=== PATIENT | female | born 1990 | race American Indian/Alaskan Native ===

== ENCOUNTER 2017-05-03 09:21 | Inpatient (IN) | payer OTHER ==
[2017-05-03 10:43] LABS: Mean Corpuscular HGB Conc 29 % (30-34); Platelet Count 305 K/mm3 (140-440); Red Blood Count 4.35 M/mm3 (3.65-5.03)
[2017-05-03 10:44] LABS: Hematocrit 25.1 % (30.3-42.9); Hemoglobin 7.2 gm/dl (10.1-14.3); Mean Corpuscular Hemoglobin 17 pg (28-32); Mean Corpuscular Volume 58 fl (79-97); Red Cell Distribution Width 21.8 % (13.2-15.2)
[2017-05-03 10:59] LABS: BUN/Creatinine Ratio 17; Blood Urea Nitrogen 10 mg/dL (7-17); Calcium 8.3 mg/dL (8.4-10.2); Hemolysis Index 3
[2017-05-03] MEDS ORDERED: TYLENOL ONE ×2 (12:28→17:51)
[2017-05-03] MEDS ORDERED: TYLENOL PO ONE (17:55)
[2017-05-03] MEDS ORDERED: NACL 0.9% 500 ML 500 ML IV ONE (22:18)
[2017-05-03] MEDS ORDERED: NACL 0.9% 1000 ML 1,000 ML IV ONE (22:20)
[2017-05-03] MEDS ORDERED: TORADOL IV ONE (22:20)
--- NOTE | 2017-05-03 22:26 | Emergency Department Report ---
ED Syncope HPI - General Chief Complaint: Weakness Stated Complaint: BLOOD TRANSFUSION Time Seen by Provider: 05/03/17 22:00 Source: patient Exam Limitations: no limitations - History of Present Illness Initial Comments: 27-year-old female with a past medical history of anemia with previous blood transfusion age 14 presents to the hospital complaining of syncope 2 over the past 3 weeks. Both episodes preceded by lightheadedness and generalized warmth sensation foor the past 3 weeks. She has to have a frequent vomiting with decreased by mouth tolerance that has started to taper off over the past 4 days. Patient only had diarrhea for 2 days during this illness. Patient had blood in her stool 2 which they resolved. No course of melena or hematemesis. Patient is currently on her menstrual cycle reports that it is typically heavy and she uses 6 overnight pads during the daylight hours today an additional pads at night. Patient has been back and forth to [facility] over the past week for her symptoms and today had blood work showing a hemoglobin of 6. Patient does presents with [facility] paperwork with a primary billing diagnosis of "idiopathic hemolytic anemia, chronic". Pt does not take Iron pills.. Dyspnea on exertion reported without chest pain, calf tenderness/edema, bcp use, or recent travel history. - Related Data Allergies/Adverse Reactions: Allergies No Known Allergies Allergy (Unverified 05/03/17 10:17) ED Review of Systems ROS: Stated complaint: BLOOD TRANSFUSION Other details as noted in HPI Comment: All other systems reviewed and negative Other: Constitutional: No fevers chills Eyes: No eye pain visual changes ENT: No ear pain or throat pain Neck: Denies pain Respiratory: Denies cough wheezing Cardiovascular: Denies chest pain, palpitations, syncope GI: Menstrual cramps : Denies dysuria Musculoskeletal: Denies back pain, joint swelling Skin: Denies rash, lesions, erythema Neurologic: Denies headache, numbness, weakness Psychiatric: Denies suicidal ideation, hallucinations ED Past Medical Hx - Past Medical History Previous Medical History?: No Additional medical history: anemia - Surgical History Past Surgical History?: No - Social History Smoking Status: Never Smoker Substance Use Type: Alcohol ED Physical Exam - General Limitations: No Limitations - Other Other exam information: General: No limitations, patient is alert in no acute distress Head exam: Atraumatic, normocephalic Eyes exam: Normal appearance, pale conjunctivae ENT: Moist mucous membrane, pale tongue Neck exam: Normal inspection, full range of motion, no meningismus nontender Respiratory exam: Clear to auscultation bilateral, no wheezes, rales, crackles Cardiovascular: Normal rate and rhythm, normal heart sounds Abdomen: Soft, nondistended, and nontender, with normal bowel sounds, no rebound, or guarding Extremity: Full range of motion normal inspection no deformity Back: Normal Inspection, full range of motion, no tenderness Neurologic: Alert, oriented x3, cranial nerves intact, no motor or sensory deficit Psychiatric: normal affect, normal mood Skin: Warm, dry, intact ED Course Vital Signs 05/03/17 05/03/17 05/03/17 10:11 16:21 18:25 Temperature 98 F 98.5 F Pulse Rate 68 69 Respiratory 18 18 18 Rate Blood Pressure 125/80 Blood Pressure 133/69 [Left] O2 Sat by Pulse 100 100 Oximetry 05/03/17 05/03/17 05/03/17 22:19 22:30 23:08 Temperature Pulse Rate 59 L 81 Respiratory 11 L 13 Rate Blood Pressure 136/95 136/95 Blood Pressure [Left] O2 Sat by Pulse 100 100 100 Oximetry 05/03/17 05/03/17 05/03/17 23:12 23:16 23:30 Temperature Pulse Rate 75 87 Respiratory 16 15 11 L Rate Blood Pressure 121/76 136/95 Blood Pressure [Left] O2 Sat by Pulse 100 100 Oximetry 05/03/17 05/04/17 23:45 00:00 Temperature Pulse Rate 75 67 Respiratory 13 20 Rate Blood Pressure 136/95 133/86 Blood Pressure [Left] O2 Sat by Pulse 100 100 Oximetry ED Medical Decision Making - Lab Data Result diagrams: 05/03/17 10:25 05/03/17 10:25 Lab Results 05/03/17 05/03/17 05/03/17 Range/Units 10:25 10:25 10:25 WBC 3.6 L (4.5-11.0) K/mm3 RBC 4.35 (3.65-5.03) M/mm3 Hgb 7.2 L (10.1-14.3) gm/dl Hct 25.1 L (30.3-42.9) % MCV 58 L (79-97) fl MCH 17 L (28-32) pg MCHC 29 L (30-34) % RDW 21.8 H (13.2-15.2) % Plt Count 305 (140-440) K/mm3 Percent Retic (0.78-2.58) % Sodium 143 (137-145) mmol/L Potassium 4.0 (3.6-5.0) mmol/L Chloride 105.6 (98-107) mmol/L Carbon Dioxide 24 (22-30) mmol/L Anion Gap 17 mmol/L BUN 10 (7-17) mg/dL Creatinine 0.6 L (0.7-1.2) mg/dL Estimated GFR > 60 ml/min BUN/Creatinine Ratio 17 % Glucose 87 (65-100) mg/dL Calcium 8.3 L (8.4-10.2) mg/dL Iron (37-170) ug/dL TIBC (250-450) mcg/dL % Saturation % Transferrin (192-382) mg/dl Total Bilirubin (0.1-1.2) mg/dL Direct Bilirubin (0-0.2) mg/dL Indirect Bilirubin mg/dL AST (5-40) units/L ALT (7-56) units/L Alkaline Phosphatase (35-129) units/L Lactate Dehydrogenase (91-180) units/L Total Protein (6.3-8.2) g/dL Albumin (3.9-5) g/dL Albumin/Globulin Ratio % HCG, Quant < 2 (0-4) mIU/mL Blood Type Antibody Screen Crossmatch 05/03/17 05/03/17 05/03/17 Range/Units 11:30 22:21 23:04 WBC (4.5-11.0) K/mm3 RBC (3.65-5.03) M/mm3 Hgb (10.1-14.3) gm/dl Hct (30.3-42.9) % MCV (79-97) fl MCH (28-32) pg MCHC (30-34) % RDW (13.2-15.2) % Plt Count (140-440) K/mm3 Percent Retic 1.01 (0.78-2.58) % Sodium (137-145) mmol/L Potassium (3.6-5.0) mmol/L Chloride (98-107) mmol/L Carbon Dioxide (22-30) mmol/L Anion Gap mmol/L BUN (7-17) mg/dL Creatinine (0.7-1.2) mg/dL Estimated GFR ml/min BUN/Creatinine Ratio % Glucose (65-100) mg/dL Calcium (8.4-10.2) mg/dL Iron 17 L (37-170) ug/dL TIBC 347 (250-450) mcg/dL % Saturation 4.90 % Transferrin 310 (192-382) mg/dl Total Bilirubin (0.1-1.2) mg/dL Direct Bilirubin (0-0.2) mg/dL Indirect Bilirubin mg/dL AST (5-40) units/L ALT (7-56) units/L Alkaline Phosphatase (35-129) units/L Lactate Dehydrogenase (91-180) units/L Total Protein (6.3-8.2) g/dL Albumin (3.9-5) g/dL Albumin/Globulin Ratio % HCG, Quant (0-4) mIU/mL Blood Type O POSITIVE Antibody Screen Negative Crossmatch See Detail 05/03/17 05/03/17 Range/Units 23:04 23:04 WBC (4.5-11.0) K/mm3 RBC (3.65-5.03) M/mm3 Hgb (10.1-14.3) gm/dl Hct (30.3-42.9) % MCV (79-97) fl MCH (28-32) pg MCHC (30-34) % RDW (13.2-15.2) % Plt Count (140-440) K/mm3 Percent Retic (0.78-2.58) % Sodium (137-145) mmol/L Potassium (3.6-5.0) mmol/L Chloride (98-107) mmol/L Carbon Dioxide (22-30) mmol/L Anion Gap mmol/L BUN (7-17) mg/dL Creatinine (0.7-1.2) mg/dL Estimated GFR ml/min BUN/Creatinine Ratio % Glucose (65-100) mg/dL Calcium (8.4-10.2) mg/dL Iron (37-170) ug/dL TIBC (250-450) mcg/dL % Saturation % Transferrin (192-382) mg/dl Total Bilirubin 0.20 (0.1-1.2) mg/dL Direct Bilirubin 0.2 (0-0.2) mg/dL Indirect Bilirubin 0.0 mg/dL AST 15 (5-40) units/L ALT 10 (7-56) units/L Alkaline Phosphatase 76 (35-129) units/L Lactate Dehydrogenase 163 (91-180) units/L Total Protein 7.5 (6.3-8.2) g/dL Albumin 4.4 (3.9-5) g/dL Albumin/Globulin Ratio 1.4 % HCG, Quant (0-4) mIU/mL Blood Type Antibody Screen Crossmatch - EKG Data -: EKG Interpreted by Me EKG shows normal: sinus rhythm, axis (21), QRS complexes (79), ST-T waves (no stemi/t wave inv) Rate: normal (64) - EKG Data When compared to previous EKG there are: previous EKG unavailable - Medical Decision Making Syncope Likely secondary to symptomatic anemia Volume depletion secondary to vomiting also contributing factor Anemia microcytic suggesting iron deficiency Active vaginal bleeding reported No current melena, hematochezia, or hematemesis reported [facility] has a diagnosis of hemolytic anemia however I suspect this is not the case. To confirm haptoglobin, ret count, LDH, LFTs, and iron studies added to blood work and pending at disposition 2 Units PRBC Heavy vaginal bleedings last menstrual cycle Likely contributing to anemia test negative Ultrasound pelvic/transvaginal pending at disposition tylenol and toradol given for menstrual cramps Hospitalist informed of admission. - Differential Diagnosis anemia, dehydration, Critical Care Time: No Critical care attestation.: If time is entered above; I have spent that time in minutes in the direct care of this critically ill patient, excluding procedure time. ED Disposition Clinical Impression: Syncope, Signs and symptoms of anemia, Menorrhagia, Vomiting Disposition: OP ADMIT IP TO THIS HOSP Is pt being admited?: Yes Condition: Stable Time of Disposition: 23:02 (jose/hosp)
[2017-05-03 23:37] LABS: Albumin 4.4 g/dL (3.9-5)
--- NOTE | 2017-05-03 23:48 | Ultrasound Report ---
FINAL REPORT EXAM: US TRANSVAGINAL HISTORY: heavy vag bleeding, anemia TECHNIQUE: Ultrasound pelvis transvaginal with pulsed and color Doppler evaluation is PRIORS: None. FINDINGS: The uterus is 7.5 x 3.6 x 4.1 centimeters. At the anterior aspect of the uterus there is a sub serosal mixed echogenicity focus measuring 2.2 centimeters consistent with a fibroid Endometrial stripe is 1.1 centimeters. No free-fluid identified The right ovary is 3.7 x 2.1 x 3.4 centimeters Left ovary is 3.8 x 0.7 x 2.5 centimeters Small follicular cysts are noted. No abnormal mass identified IMPRESSION: 2.2 centimeter uterine fibroid
--- NOTE | 2017-05-03 23:49 | Ultrasound Report ---
FINAL REPORT EXAM: US PELVIC COMPLETE HISTORY: heavy vag bleeding, anemia TECHNIQUE: Ultrasound pelvis transabdominal PRIORS: None. FINDINGS: The uterus is 7.5 x 3.6 x 4.1 centimeters. At the anterior aspect of the uterus there is a sub serosal mixed echogenicity focus measuring 2.2 centimeters consistent with a fibroid Endometrial stripe is 1.1 centimeters. No free-fluid identified The right ovary is 3.7 x 2.1 x 3.4 centimeters Left ovary is 3.8 x 0.7 x 2.5 centimeters Small follicular cysts are noted. No abnormal mass identified IMPRESSION: 2.2 centimeter uterine fibroid
--- NOTE | 2017-05-03 23:51 | History and Physical Report ---
History of Present Illness Date of admission: 05/03/17 23:03 Chief complaint: Was sent from primary care physician for blood transfusion History of present illness: 27-year-old -Iranian female with past medical history significant for anemia sent from her primary care physician Dr. Wilkerson for blood transfusion. Yesterday in her primary care physician office her hemoglobin was 6. She was sent to emergency department but she didn't come to the hospital rather she went home and come back today. Patient said she is feeling weak, and dizzy but denied chest pain, bilateral leg swelling, cough. Patient say her period is very heavy. Patient states she has history of blood transfusion when she was 14. Patient denied nausea, vomiting, hematemesis, or melena. REVIEW OF SYSTEMS: GENERAL: no weight change, +fatigue, no fever HEAD: no head ache EYES: no blurry vision, no acute visual loss EARS: no hearing loss, no discharge, no earache NOSE: no stuffiness, no sneezing, no discharge MOUTH, THROAT AND NECK: no bleeding gums, no sore throat, no swollen neck CARDIAC: no palpitations, + dyspnea on exertion, no orthopnea, no PND, no edema , no chest pain RESPIRATORY: no shortness of breath, no wheeze, no cough, no sputum, no hemoptysis, no asthma GI: no decreased appetite, no nausea, no vomiting, no dysphagia, no diarrhea, no constipation, no abdominal pain URINARY: no change in frequency, no urgency, no polyuria, no hematuria, no incontinence MUSCULOSKELETAL: no muscle weakness, no pain, no joint stiffness NEUROLOGIC: no loss of sensation/numbness, no tingling, no tremors, no weakness/ paralysis HEMATOLOGIC: no anemia, no easy bruising SKIN: no rashes ENDOCRINE: no heat/cold intolerance, no polyuria, no polydipsia, no thyroid problems, no diabetes PSYCHIATRIC: no anxiety, no depression, no suicidal ideations Past History Past Medical History: anemia Past Surgical History: No surgical history Social history: full code. denies: smoking, alcohol abuse, prescription drug abuse, IV drug use Family history: hypertension (motherMOTHER) Medications and Allergies Allergies Allergy/AdvReac Type Severity Reaction Status Date / Time No Known Allergies Allergy Unverified 05/03/17 10:17 Exam - Physical Exam Narrative exam: Not in cardiopulmonary distress. The patient is obese. Vital signs as documented. Head exam is unremarkable. No scleral icterus . Pale conjunctiva. Neck is without jugular venous distension, thyromegaly, or carotid bruits. Lungs are clear to auscultation. Cardiac exam reveals regular rate and Rhythm. First and second heart sounds normal. No murmurs, rubs or gallops. Abdominal exam reveals normal bowel sounds, no masses, no organomegaly and no aortic enlargement. Extremities are nonedematous and both femoral and pedal pulses are normal. TURNTABLE OPERATOR: Alert and oriented 3. No focal weakness. - Constitutional Vitals: Temp Pulse Resp BP Pulse Ox 98.5 F 69 16 133/69 100 05/03/17 16:21 05/03/17 16:21 05/03/17 23:12 05/03/17 16:21 05/03/17 16:21 Results - Labs CBC & Chem 7: 05/03/17 10:25 05/03/17 10:25 Labs: Laboratory Last Values WBC 3.6 K/mm3 (4.5-11.0) L 05/03/17 10:25 RBC 4.35 M/mm3 (3.65-5.03) 05/03/17 10:25 Hgb 7.2 gm/dl (10.1-14.3) L 05/03/17 10:25 Hct 25.1 % (30.3-42.9) L 05/03/17 10:25 MCV 58 fl (79-97) L 05/03/17 10:25 MCH 17 pg (28-32) L 05/03/17 10:25 MCHC 29 % (30-34) L 05/03/17 10:25 RDW 21.8 % (13.2-15.2) H 05/03/17 10:25 Plt Count 305 K/mm3 (140-440) 05/03/17 10:25 Percent Retic 1.01 % (0.78-2.58) 05/03/17 23:04 Sodium 143 mmol/L (137-145) 05/03/17 10:25 Potassium 4.0 mmol/L (3.6-5.0) 05/03/17 10:25 Chloride 105.6 mmol/L (98-107) 05/03/17 10:25 Carbon Dioxide 24 mmol/L (22-30) 05/03/17 10:25 Anion Gap 17 mmol/L 05/03/17 10:25 BUN 10 mg/dL (7-17) 05/03/17 10:25 Creatinine 0.6 mg/dL (0.7-1.2) L 05/03/17 10:25 Estimated GFR > 60 ml/min 05/03/17 10:25 BUN/Creatinine Ratio 17 % 05/03/17 10:25 Glucose 87 mg/dL (65-100) 05/03/17 10:25 Calcium 8.3 mg/dL (8.4-10.2) L 05/03/17 10:25 Total Bilirubin 0.20 mg/dL (0.1-1.2) 05/03/17 23:04 AST 15 units/L (5-40) 05/03/17 23:04 ALT 10 units/L (7-56) 05/03/17 23:04 Alkaline Phosphatase 76 units/L (35-129) 05/03/17 23:04 Lactate Dehydrogenase 163 units/L (91-180) 05/03/17 23:04 Total Protein 7.5 g/dL (6.3-8.2) 05/03/17 23:04 Albumin 4.4 g/dL (3.9-5) 05/03/17 23:04 Albumin/Globulin Ratio 1.4 % 05/03/17 23:04 HCG, Quant < 2 mIU/mL (0-4) 05/03/17 10:25 Blood Type O POSITIVE 05/03/17 11:30 Antibody Screen Negative 05/03/17 11:30 Crossmatch See Detail 05/03/17 11:30 - Imaging and Cardiology Imaging and Cardiology: Pelvic/vagina ultrasound 2.2 uterine fibroid Assessment and Plan Assessment and plan: Symptomatic anemia Menorrhagia Uterine fibroid - Anemia workup - We'll transfuse him 1 unit of blood - We will check posttransfusion H&H - My FIELD EVIDENCE TECHNICIAN consulted DVT prophylaxis - SCDs because of anemia and menorrhagia Disposition - Admit to medical floor Advance Directives: Yes VTE prophylaxis?: Mechanical Contraindication Mechanical VTE Prophylaxis: Contraindicated Reason for no VTE Prophylaxis: Bleeding
[2017-05-04 01:19] LABS: Bilirubin,Direct 0.2 mg/dL (0-0.2)
[2017-05-04 03:17] LABS: % Iron Saturation 4.9 %
[2017-05-04 04:18] LABS: Hematocrit 21.9 % (30.3-42.9); Hemoglobin 6.2 gm/dl (10.1-14.3)
[2017-05-04] MEDS ORDERED: NACL 0.9% 500 ML 500 ML IV ONE (06:00)
[2017-05-04] MEDS: TYLENOL PO PRN (08:14)
[2017-05-04] MEDS ORDERED: PERCOCET 5/325 PO PRN (10:03)
--- NOTE | 2017-05-04 13:58 | Consultation ---
History of Present Illness Consult date: 05/04/17 Reason for consult: menorrhagia History of present illness: Asked to see this 27-year-old G0 admitted yesterday for symptomatic anemia to the hospitalist service. Patient's hemoglobin and hematocrit was initially ~ 7 on 05/03/17 and is now down to ~ 6 today. She is currently receiving 2 units of packed red blood cells. She has also been seen by cardiology and internal medicine and ruled out for ACS. Transvaginal ultrasound shows an ~ 8 cm uterus with ~ 2 cm subserosal fibroid. Stripe is 1.1 cm, ovaries have small follicular cysts BIAS CUTTER history significant for LMP 04/30/2017; she has heavy cycles usually of 4 days duration. Patient's cycle irregular, usually has ~ 2 cycles per month +Dysmenorhea, No STDs, normal PAP's Medhx:Anemia; no history of transfusion at 14 years old. She is unsure of reason or her hemoglobin count Denies history of sickle cell disease On exam, she is currently not bleeding Past History Past Medical History: blood transfusion (oral history of blood transfusion at 14 years old) Past Surgical History: other (dental extraction, no associated hemorrhage) BIAS CUTTER History: herpes. denies: abnormal PAP smear, chlamydia, gonorrhea, hepatitis B, hepatitis C, trichomonas Social history: , full code. denies: smoking, alcohol abuse, prescription drug abuse, IV drug use Medications and Allergies Allergies Allergy/AdvReac Type Severity Reaction Status Date / Time No Known Allergies Allergy Unverified 05/03/17 10:17 Home Medications Medication Instructions Recorded Confirmed Last Taken Type No Known Home Medications [No 05/04/17 05/04/17 Unknown History Reported Home Medications] Active Meds: Active Medications Acetaminophen (Tylenol) 650 mg PO Q6H PRN PRN Reason: Pain, Mild (1-3) Last Admin: 05/04/17 08:14 Dose: 650 mg Oxycodone/Acetaminophen (Percocet 5/325) 1 tab PO Q6H PRN PRN Reason: Pain, Moderate (4-6) Last Admin: 05/04/17 10:12 Dose: 1 tab Review of Systems Constitutional: fatigue, weakness, no weight loss, no weight gain, no fever, no chills, no anorexia Cardiovascular: lightheadedness, no chest pain Gastrointestinal: no abdominal pain, no nausea, no vomiting Genitourinary: no vaginal bleeding, no vaginal discharge, no pelvic pain, no contractions - Vital Signs Vital signs: Vital Signs Temp Pulse Resp BP Pulse Ox 98 F 68 18 125/80 100 05/03/17 10:11 05/03/17 10:11 05/03/17 10:11 05/03/17 10:11 05/03/17 10:11 Temp Pulse Resp BP Pulse Ox 98.7 F 65 18 140/91 100 05/04/17 10:41 05/04/17 10:41 05/04/17 10:41 05/04/17 10:41 05/04/17 10:41 - Physical Exam Cardiovascular: Regular rate, Normal S1, Normal S2 Lungs: Positive: Clear to auscultation, Normal air movement Abdomen: Positive: normal appearance, soft, normal bowel sounds. Negative: tenderness, guarding, rigidity Genitourinary (Female): Positive: normal external genitalia Vulva: both: normal Vagina: Positive: normal moisture. Negative: discharge Uterus: Positive: normal size. Negative: tender Adnexa: both: normal Extremities: Positive: normal Results Result Diagrams: 05/04/17 03:12 05/03/17 10:25 Abnormal lab results 05/03/17 05/03/17 05/04/17 Range/Units 11:30 22:21 03:12 Hgb 6.2 L (10.1-14.3) gm/dl Hct 21.9 L (30.3-42.9) % Iron 17 L (37-170) ug/dL Crossmatch See Detail All other labs normal. Assessment and Plan A: 27-year-old G0 with AUB/HMB-O -Currently not actively bleeding -Doubt her fibroid responsible for her bleeding -Suspect ovulatory dysfxn P: -Discussed the above with patient in detail. Advised control as most likely option as she does not plan to conceive the near future -Advised to follow up in clinic to discuss other options including possible EMB -Clear for discharge from BIAS CUTTER standpoint after blood transfusion and resolution of symptoms -Please call with questions - Patient Problems (1) Abnormal uterine bleeding (AUB) Current Visit: Yes Status: Acute (2) Anemia Current Visit: Yes Status: Acute Qualifiers: Other causes of anemia: acute posthemorrhagic
--- NOTE | 2017-05-04 15:33 | Progress Note ---
<MALINI MEHTA - Last Filed: 05/04/17 16:11> Assessment and Plan Assessment and plan: Ms. Treviño is a 27 year old female who was sent to ER by Primary Care Physician Dr. Wilkerson for blood transfusion. Though instructed to come to ER immediately, patient did not instead went home and after symptoms worsen decided to come to the ER. At PCP office, noted with Hgb of 6, was symptomatic complaining of weakness and dizziness. On admission, noted with H/H of 6.2/21.9. A/P Idiopathic Hemolytic Anemia * Continue with 2nd unit of PRBC * Will repeat H/H post transfusion * OBGYN Consult Iron Deficiency Anemia * Start on Ferrous Sulfate 325mg Po BID * Colace 100mg PO BID Headache * Percocet 5/325mg PO Q6H PRN for pain * Monitor for rebound headache SOB * Most likely from disease state of low hemoglobin and hematocrit *O2 therapy @ 3L/min NC * Monitor O2 Sat * If Symptoms persist with do Chest X ray or CT scan Chest Pain * Mostly like from low hemoglobin and hematocrit * EKG ordered-Showed NSR * Continue on O2 therapy * Monitor for any progressive symptoms DVT Prophylaxis * SCD, no medical anticoagulants due to low H/H Patient seen in conjunction with Dr. Slaughter who agree with current plan of care. History Interval history: Ms. Treviño is a 27 year old female who was sent to ER by Primary Care Physician Dr. Wilkerson for blood transfusion. Though instructed to come to ER immediately, patient did not instead went home and after symptoms worsen decided to come to the ER. At PCP office, noted with Hgb of 6, was symptomatic complaining of weakness and dizziness. On admission, noted with H/H of 6.2/ 21.9. Patient remains alert and oriented times 4. Currently complaining of headache which was unresponsive to Tylenol, intermittent mild-moderate chest pain and shortness of breath with exertion. Vital signs stable. Hospitalist Physical - Constitutional Vitals: Temp Pulse Resp BP Pulse Ox 98.3 F 74 18 128/84 83 L 05/04/17 15:07 05/04/17 15:07 05/04/17 15:07 05/04/17 15:07 05/04/17 15:07 General appearance: Present: mild distress, well-nourished - EENT Eyes: Present: PERRL, EOM intact ENT: hearing intact, clear oral mucosa - Neck Neck: Present: supple, normal ROM. Absent: enlarged thyroid, masses or JVD, carotid bruits - Respiratory Respiratory effort: normal (currently no SOB noted) Respiratory: bilateral: CTA - Cardiovascular Rhythm: regular Heart Sounds: Present: S1 & S2 - Extremities Extremities: no ischemia, pulses intact, pulses symmetrical, normal temperature , normal color Peripheral Pulses: within normal limits - Abdominal General gastrointestinal: soft, non-tender, non-distended, normal bowel sounds - Integumentary Integumentary: Present: clear, warm, dry, pale, normal turgor. Absent: erythema , jaundice, rash, clammy - Psychiatric Psychiatric: appropriate mood/affect, cooperative Results - Labs CBC & Chem 7: 05/04/17 03:12 05/03/17 10:25 Labs: Laboratory Last Values WBC 3.6 K/mm3 (4.5-11.0) L 05/03/17 10:25 RBC 4.35 M/mm3 (3.65-5.03) 05/03/17 10:25 Hgb 6.2 gm/dl (10.1-14.3) L 05/04/17 03:12 Hct 21.9 % (30.3-42.9) L 05/04/17 03:12 MCV 58 fl (79-97) L 05/03/17 10:25 MCH 17 pg (28-32) L 05/03/17 10:25 MCHC 29 % (30-34) L 05/03/17 10:25 RDW 21.8 % (13.2-15.2) H 05/03/17 10:25 Plt Count 305 K/mm3 (140-440) 05/03/17 10:25 Percent Retic 1.01 % (0.78-2.58) 05/03/17 23:04 Sodium 143 mmol/L (137-145) 05/03/17 10:25 Potassium 4.0 mmol/L (3.6-5.0) 05/03/17 10:25 Chloride 105.6 mmol/L (98-107) 05/03/17 10:25 Carbon Dioxide 24 mmol/L (22-30) 05/03/17 10:25 Anion Gap 17 mmol/L 05/03/17 10:25 BUN 10 mg/dL (7-17) 05/03/17 10:25 Creatinine 0.6 mg/dL (0.7-1.2) L 05/03/17 10:25 Estimated GFR > 60 ml/min 05/03/17 10:25 BUN/Creatinine Ratio 17 % 05/03/17 10:25 Glucose 87 mg/dL (65-100) 05/03/17 10:25 Calcium 8.3 mg/dL (8.4-10.2) L 05/03/17 10:25 Iron 17 ug/dL (37-170) L 05/03/17 22:21 TIBC 347 mcg/dL (250-450) 05/03/17 22:21 % Saturation 4.90 % 05/03/17 22:21 Transferrin 310 mg/dl (192-382) 05/03/17 22:21 Total Bilirubin 0.20 mg/dL (0.1-1.2) 05/03/17 23:04 Direct Bilirubin 0.2 mg/dL (0-0.2) 05/03/17 23:04 Indirect Bilirubin 0.0 mg/dL 05/03/17 23:04 AST 15 units/L (5-40) 05/03/17 23:04 ALT 10 units/L (7-56) 05/03/17 23:04 Alkaline Phosphatase 76 units/L (35-129) 05/03/17 23:04 Lactate Dehydrogenase 163 units/L (91-180) 05/03/17 23:04 Total Protein 7.5 g/dL (6.3-8.2) 05/03/17 23:04 Albumin 4.4 g/dL (3.9-5) 05/03/17 23:04 Albumin/Globulin Ratio 1.4 % 05/03/17 23:04 HCG, Quant < 2 mIU/mL (0-4) 05/03/17 10:25 Blood Type O POSITIVE 05/03/17 11:30 Antibody Screen Negative 05/03/17 11:30 Crossmatch See Detail 05/03/17 11:30 <SHRADDHA SLAUGHTER - Last Filed: 05/04/17 20:59> Assessment and Plan Assessment and plan: I saw and evaluated the patient. I agree with the findings and the plan of care as documented in the Nurse Practitioner's~note, with the following corrections and additions. Chest pian and shortness of breath. same as before coming to the hospital. likly demand issues. [employer] follow up outpatient. Hospitalist Physical - Constitutional Vitals: Temp Pulse Resp BP Pulse Ox 98.3 F 74 18 128/84 83 L 05/04/17 15:07 05/04/17 15:07 05/04/17 15:07 05/04/17 15:07 05/04/17 15:07 Results - Labs CBC & Chem 7: 05/04/17 17:40 05/03/17 10:25 Labs: Laboratory Last Values WBC 3.6 K/mm3 (4.5-11.0) L 05/03/17 10:25 RBC 4.35 M/mm3 (3.65-5.03) 05/03/17 10:25 Hgb 9.1 gm/dl (10.1-14.3) L 05/04/17 17:40 Hct 34.6 % (30.3-42.9) D 05/04/17 17:40 MCV 58 fl (79-97) L 05/03/17 10:25 MCH 17 pg (28-32) L 05/03/17 10:25 MCHC 29 % (30-34) L 05/03/17 10:25 RDW 21.8 % (13.2-15.2) H 05/03/17 10:25 Plt Count 305 K/mm3 (140-440) 05/03/17 10:25 Percent Retic 1.01 % (0.78-2.58) 05/03/17 23:04 Sodium 143 mmol/L (137-145) 05/03/17 10:25 Potassium 4.0 mmol/L (3.6-5.0) 05/03/17 10:25 Chloride 105.6 mmol/L (98-107) 05/03/17 10:25 Carbon Dioxide 24 mmol/L (22-30) 05/03/17 10:25 Anion Gap 17 mmol/L 05/03/17 10:25 BUN 10 mg/dL (7-17) 05/03/17 10:25 Creatinine 0.6 mg/dL (0.7-1.2) L 05/03/17 10:25 Estimated GFR > 60 ml/min 05/03/17 10:25 BUN/Creatinine Ratio 17 % 05/03/17 10:25 Glucose 87 mg/dL (65-100) 05/03/17 10:25 Calcium 8.3 mg/dL (8.4-10.2) L 05/03/17 10:25 Iron 17 ug/dL (37-170) L 05/03/17 22:21 TIBC 347 mcg/dL (250-450) 05/03/17 22:21 % Saturation 4.90 % 05/03/17 22:21 Transferrin 310 mg/dl (192-382) 05/03/17 22:21 Total Bilirubin 0.20 mg/dL (0.1-1.2) 05/03/17 23:04 Direct Bilirubin 0.2 mg/dL (0-0.2) 05/03/17 23:04 Indirect Bilirubin 0.0 mg/dL 05/03/17 23:04 AST 15 units/L (5-40) 05/03/17 23:04 ALT 10 units/L (7-56) 05/03/17 23:04 Alkaline Phosphatase 76 units/L (35-129) 05/03/17 23:04 Lactate Dehydrogenase 163 units/L (91-180) 05/03/17 23:04 Total Protein 7.5 g/dL (6.3-8.2) 05/03/17 23:04 Albumin 4.4 g/dL (3.9-5) 05/03/17 23:04 Albumin/Globulin Ratio 1.4 % 05/03/17 23:04 HCG, Quant < 2 mIU/mL (0-4) 05/03/17 10:25 Blood Type O POSITIVE 05/03/17 11:30 Antibody Screen Negative 05/03/17 11:30 Crossmatch See Detail 05/03/17 11:30
[2017-05-04 17:57] LABS: Hematocrit 34.6 % (30.3-42.9); Hemoglobin 9.1 gm/dl (10.1-14.3)
[2017-05-04] MEDS: COLACE PO SCH (21:29)
[2017-05-04] MEDS: FEOSOL PO SCH (21:29)
--- NOTE | 2017-05-05 08:20 | Discharge Summary ---
<SHRADDHA SLAUGHTER - Last Filed: 05/05/17 08:20> Providers - Providers Date of Admission: 05/03/17 23:03 Attending physician: SHRADDHA SLAUGHTER MD 05/04/17 02:51 Consult to Physician [CONS] Routine Consulting Provider: [facility] Reason For Exam: menorrhagia Place consult to:: RE[facility]ING LEAD/ dr. murphy Notified:: answering service Phone number called:: Was contact made?: Yes If yes, spoke with:: august Time called:: 09:40 Primary care physician: [employer] Hospitalization Condition: Stable Hospital course: Ms. Treviño is a 27 year old female who was sent to ER by Primary Care Physician Dr. Wilkerson for blood transfusion. Though instructed to come to ER immediately, patient did not instead went home and after symptoms worsen decided to come to the ER. At PCP office, noted with Hgb of 6, was symptomatic complaining of weakness and dizziness. On admission, noted with H/H of 6.2/21.9. A/P Idiopathic Hemolytic Anemia * Continue with 2nd unit of PRBC * Will repeat H/H post transfusion * OBGYN Consult Iron Deficiency Anemia * Start on Ferrous Sulfate 325mg Po BID * Colace 100mg PO BID Headache * Percocet 5/325mg PO Q6H PRN for pain * Monitor for rebound headache SOB * Most likely from disease state of low hemoglobin and hematocrit *O2 therapy @ 3L/min NC * Monitor O2 Sat * If Symptoms persist with do Chest X ray or CT scan Chest Pain * Mostly like from low hemoglobin and hematocrit * EKG ordered-Showed NSR * Continue on O2 therapy * Monitor for any progressive symptoms DVT Prophylaxis * SCD, no medical anticoagulants due to low H/H Patient seen in conjunction with Dr. Slaughter who agree with current plan of care. Disposition: - TO HOME OR SELFCARE Core Measure Documentation - Palliative Care Palliative Care/ Comfort Measures: Not Applicable - Core Measures Any of the following diagnoses?: none - VTE Discharge Requirements Deep Vein Thrombosis/Pulmonary Embolism Present on Admission: No Exam - Constitutional Vitals: Temp Pulse Resp BP Pulse Ox 98.8 F 59 L 20 140/91 100 05/04/17 22:18 05/04/17 22:18 05/04/17 22:18 05/04/17 22:18 05/04/17 22:18 Plan Follow up with: PRIMARY MD JOSLYN [Primary Care Provider] - 3-5 Days KI CEBALLOS MD [Staff Physician] - 7 Days Prescriptions: Ferrous Sulfate [Feosol 325 MG tab] 325 mg PO BID #60 tablet <MALINI MEHTA - Last Filed: 05/05/17 09:28> Providers - Providers Date of Admission: 05/03/17 23:03 Attending physician: SHRADDHA SLAUGHTER MD 05/04/17 02:51 Consult to Physician [CONS] Routine Consulting Provider: [facility] Reason For Exam: menorrhagia Place consult to:: REPORTING LEAD/ dr. murphy Notified:: answering service Phone number called:: Was contact made?: Yes If yes, spoke with:: august Time called:: 09:40 Primary care physician: [employer] Core Measure Documentation - VTE Discharge Requirements Deep Vein Thrombosis/Pulmonary Embolism Present on Admission: No Exam - Constitutional Vitals: Temp Pulse Resp BP Pulse Ox 98.4 F 53 L 16 115/56 100 05/05/17 07:35 05/05/17 07:35 05/05/17 07:35 05/05/17 07:35 05/05/17 07:35 General appearance: Present: no acute distress - EENT Eyes: Present: PERRL, EOM intact ENT: hearing intact - Neck Neck: Present: supple, normal ROM - Respiratory Respiratory effort: normal Respiratory: bilateral: CTA - Cardiovascular Rhythm: regular Heart Sounds: Present: S1 & S2. Absent: gallop, systolic murmur, diastolic murmur, rub, click - Extremities Extremities: no ischemia, pulses intact, pulses symmetrical Peripheral Pulses: within normal limits - Abdominal General gastrointestinal: Present: soft, non-tender, non-distended, normal bowel sounds Female genitourinary: Present: normal - Integumentary Integumentary: Present: clear, warm, dry - Musculoskeletal Musculoskeletal: strength equal bilaterally - Psychiatric Psychiatric: appropriate mood/affect - Neurologic Neurologic: CNII-XII intact, moves all extremities - Allied Health Allied health notes reviewed: nursing Plan Activity: advance as tolerated Weight Bearing Status: Full Weight Bearing Diet: regular Additional Instructions: Follow-up with PCP and [facility] in 1 week
[2017-05-05] MEDS: TYLENOL PO PRN (08:58)
[2017-05-05] MEDS: FEOSOL PO SCH (10:53)
[2017-05-05] MEDS: COLACE PO SCH (10:54)
[2017-05-05 10:57] VITALS: BP 123/83
== END 2017-05-05 11:10 | disposition home or self-care (01) | DRG 761 ==
LOC: ED 09:21 → 3A 23:03
PROVIDERS: ADMIT Internal Medicine; ATTEND Internal Medicine
PROC: 30233N1 Transfusion of Nonautologous Red Blood Cells into Peripheral Vein, Percutaneous Approach (ICD-10-PCS; principal; 2017-05-04)
DX: D25.9 Leiomyoma of uterus, unspecified (principal); N92.0 Excessive and frequent menstruation with regular cycle; D64.9 Anemia, unspecified; R55 Syncope and collapse; R11.10 Vomiting, unspecified; Z82.49 Family history of ischemic heart disease and other diseases of the circulatory system; R07.9 Chest pain, unspecified
CPT/HCPCS: 36415; 76830; 76856; 80048; 80074; 83010; 83550; 83615; 84702; 85014; 85018; 85027; 85045; 86850; 86900; 86901; 86920; 93005; 93010; 96374; 99285; J1885; J7030; J7040; P9016